=== PATIENT | male | born 1995 | race Two or more races ===

== ENCOUNTER 2018-12-29 03:05 | Emergency (ER) | payer OTHER ==
[~2018-12-29] VITALS: Ht 160 cm; Wt 99.8 kg
[2018-12-29] MEDS ORDERED: HALOPERIDOL LACTATE INJ 5 MG/ML VIAL ONE (03:17)
[2018-12-29] MEDS ORDERED: LORAZEPAM INJ 2 MG/ML VIAL ONE (03:18)
--- NOTE | 2018-12-29 03:20 | NUR ---
[id number] FROM HOME C/O ANXIETY, PANIC ATTACK, SCREAMING, SEEN AND EVAL DONE, PLACED ON ER BED 13, SEEN AND EVAL DR MONCADA, [place] ORDERS ENTERED, WILL CONT' TO MONITOR.
[2018-12-29 03:27] LABS: BASOPHILS # (AUTO) 0.1 /CMM (0.0-0.2); BASOPHILS % (AUTO) 0.8 % (0.0-2.0); EOSINOPHILS % (AUTO) 2.6 % (0.0-6.0); HEMATOCRIT 42 % (39-51); HEMOGLOBIN 14.4 g/dL (13.5-17.5); LYMPHOCYTES % (AUTO) 19.5 % (20.0-44.0); MEAN CORPUSCULAR HGB CONC 34 g/dl (31.0-36.0); MEAN CORPUSCULAR VOLUME 79 fL (80-96); MONOCYTES # (AUTO) 0.9 /CMM (0.1-1.30); MONOCYTES % (AUTO) 5.9 % (2.0-12.0); NEUTROPHILS # (AUTO) 11.1 /CMM (1.8-8.9); NEUTROPHILS % (AUTO) 71.2 % (43.0-81.0); PLATELET COUNT (AUTO) 388 /CMM (150-450); RED BLOOD CELL COUNT(AUTO) 5.28 MIL/uL (4.5-6.0); WHITE BLOOD COUNT (AUTO) 15.6 K/uL (4.3-11.0)
[2018-12-29] MEDS ORDERED: LORAZEPAM INJ 2 MG/ML VIAL IM ONE (03:30)
[2018-12-29] MEDS ORDERED: LIDOCAINE 2% JEL UROJET 10 ML MM ONE (03:30)
[2018-12-29] MEDS ORDERED: HALOPERIDOL LACTATE INJ 5 MG/ML VIAL IM ONE (03:30)
[2018-12-29 03:33] LABS: CALCIUM, SERUM 10.1 mg/dL (8.5-10.1); CARBON DIOXIDE 19 mmol/L (21-32); CHLORIDE 101 mmol/L (98-107); CREATININE 1.2 mg/dL (0.6-1.3); GLUCOSE 138 mg/dL (74-106); POTASSIUM 3.4 mmol/L (3.5-5.1); SODIUM SERUM 140 mmol/L (136-145); UREA NITROGEN, BLOOD 20 mg/dL (7-18)
[2018-12-29 03:38] LABS: ALANINE AMINOTRANSFERASE 76 U/L (12-78); ALBUMIN 4.2 g/dL (3.4-5.0); ALKALINE PHOSPHATASE 85 U/L (46-116); ASPARTATE AMINOTRANSFERASE 26 U/L (15-37); BILIRUBIN,DIRECT 0.1 mg/dL (0.0-0.2); BILIRUBIN,TOTAL 0.3 mg/dL (0.2-1.0); TOTAL PROTEIN, SERUM 9.4 g/dL (6.4-8.2)
[2018-12-29 03:39] LABS: ACETAMINOPHEN 0 ug/ml (10-30); ALCOHOL, BLOOD < 3 mg/dL (0-0); SALICYLATE 1.7 mg/dL (2.8-20.0)
[2018-12-29] MEDS ORDERED: CT SWABBABLE VALVE TRANS SET 1 EA INFUS.SET MC ONE (04:48)
[2018-12-29] MEDS ORDERED: IOHEXOL-350 100 ML VIAL IV ONE (04:48)
[2018-12-29] MEDS ORDERED: IV NS 0.9% 250 ML IV ONE (04:49)
--- NOTE | 2018-12-29 05:09 | NUR ---
PT TAKEN TO CTA CHEST.
[2018-12-29] MEDS ORDERED: IV NS 0.9% 1,000 ML BAG IV ONE (06:30)
--- NOTE | 2018-12-29 08:53 | NUR ---
RECEIVED A CALL FROM MANUEL MARY SALES REPRESENTATIVE [employer] FOR INITIAL VS.
--- NOTE | 2018-12-29 09:04 | NUR ---
DR GONZALEZ ([facility]) TALKING TO DR SULLIVAN ON THE PHONE.
--- NOTE | 2018-12-29 09:20 | NUR ---
PATIENT'S MOM AT .
--- NOTE | 2018-12-29 09:52 | NUR ---
GOT MD TO ACCEPT IN [facility]. MORE TO FOLLOW.
--- NOTE | 2018-12-29 10:18 | NUR ---
[facility]. ROOM 310-B. MELVIN EDWARD [phone] FOR REPORT [facility] TRANSPORT ETA [id number].
--- NOTE | 2018-12-29 11:04 | NUR ---
REPORT GIVEN TO AUSTYN EDWARD, ASSIGNED TO ROOM 310B . S.
--- NOTE | 2018-12-29 12:30 | NUR ---
PATIENT LEFT THE FACILITY AND TRANSFERRED TO [facility]IA [facility]LS AMBULANCE. PATIENT IN STABLE CONDITION. NO DISTRESS NOTED. VSS.
[2018-12-29 12:46] VITALS: BP 102/75
== END 2018-12-29 12:51 | disposition short-term general hospital (02) ==
LOC: ER 03:07
DX: J98.59 Other diseases of mediastinum, not elsewhere classified (principal); F41.9 Anxiety disorder, unspecified; F12.929 Cannabis use, unspecified with intoxication, unspecified
CPT/HCPCS: 36415; 71045; 71275; 80048; 80076; 80305; 80307; 80329; 85025; 87081; 93005; 96372 ×2; 99285; G0480; J1630; J2060; J7030 ×2; J7050; Q9967

== ENCOUNTER 2019-10-20 01:21 | Emergency (ER) | payer OTHER ==
[~2019-10-20] VITALS: Ht 165.1 cm; Wt 99.8 kg
--- NOTE | 2019-10-20 02:21 | NUR ---
PT CAME TO ER BED 2 C/O PAIN WHEN BREATHING. PT RECENTLY HAD CHEMOTHERAPY IN AUGUST. AAOX4. NO SOB. BREATHING EVENLY AND UNLABORED ON ROOM AIR. O2 SAT AT 100%. CONNECTED TO [employer] SALES ADVISOR.
--- NOTE | 2019-10-20 02:28 | NUR ---
BLOOD DRAWN AND SENT TO LAB FOR TESTING
[2019-10-20 02:30] LABS: BASOPHILS # (AUTO) 0.1 /CMM (0.0-0.2); BASOPHILS % (AUTO) 0.7 % (0.0-2.0); EOSINOPHILS % (AUTO) 2.6 % (0.0-6.0); HEMATOCRIT 35 % (39-51); HEMOGLOBIN 11.7 g/dL (13.5-17.5); LYMPHOCYTES # (AUTO) 1.6 /CMM (0.8-4.8); MEAN CORPUSCULAR HGB CONC 33 g/dl (31.0-36.0); MEAN CORPUSCULAR VOLUME 78 fL (80-96); MONOCYTES # (AUTO) 0.7 /CMM (0.1-1.30); MONOCYTES % (AUTO) 6.5 % (2.0-12.0); NEUTROPHILS # (AUTO) 8.7 /CMM (1.8-8.9); NEUTROPHILS % (AUTO) 76.2 % (43.0-81.0); PLATELET COUNT (AUTO) 331 /CMM (150-450); RED BLOOD CELL COUNT(AUTO) 4.54 MIL/uL (4.5-6.0); WHITE BLOOD COUNT (AUTO) 11.4 K/uL (4.3-11.0)
[2019-10-20] MEDS ORDERED: IOHEXOL-350 100 ML VIAL IV ONE (02:38)
[2019-10-20] MEDS ORDERED: IV NS 0.9% 250 ML IV ONE (02:38)
[2019-10-20] MEDS ORDERED: CT SWABBABLE VALVE TRANS SET 1 EA INFUS.SET MC ONE (02:38)
[2019-10-20 02:46] LABS: CREATININE 0.9 mg/dL (0.6-1.3); POTASSIUM 3.4 mmol/L (3.5-5.1)
--- NOTE | 2019-10-20 02:58 | NUR ---
PT BROUGHT BY RADIOLOGY TO CT
--- NOTE | 2019-10-20 06:22 | NUR ---
Patient discharged to home in stable condition. Written and verbal after care instructions given. Patient verbalizes understanding of instruction.
[2019-10-20 06:23] VITALS: BP 116/76
== END 2019-10-20 06:24 | disposition home or self-care (01) ==
LOC: ER 01:24
DX: R06.02 Shortness of breath (principal); Z85.79 Personal history of other malignant neoplasms of lymphoid, hematopoietic and related tissues
CPT/HCPCS: 36415; 71275; 80048; 84484 ×2; 85025; 93005 ×2; 99284; J7050; Q9967

== ENCOUNTER 2019-10-31 20:02 | Emergency (ER) | payer OTHER ==
[~2019-10-31] VITALS: Ht 162.6 cm; Wt 102.1 kg
[2019-10-31 20:15] VITALS: BP 112/64
--- NOTE | 2019-10-31 20:18 | NUR ---
PT AAOX4. AMBULAORY WITH STEADY GAIT. BIBS. C/O DROWSY X 2 DAYS ON XANAX FOR ANXIETY LAST TAKEN TODAY AM. PT STATES HE FELT DIZZY TODAY. NO NEURO DEFICIT, PERRLA. VSS. AWAITING MD FOR EVAL.
== END 2019-10-31 21:16 | disposition home or self-care (01) ==
LOC: ER 20:02
DX: F41.9 Anxiety disorder, unspecified (principal); G47.00 Insomnia, unspecified; Z85.79 Personal history of other malignant neoplasms of lymphoid, hematopoietic and related tissues

== ENCOUNTER 2022-04-28 02:09 | Emergency (ER) | payer MEDICAID, OTHER ==
[~2022-04-28] VITALS: Ht 162.6 cm; Wt 77.1 kg
[2022-04-28 02:25] VITALS: BP 140/87
--- NOTE | 2022-04-28 02:25 | NUR ---
BIBS C/O FLU LIKE SYMPTOMS COUGH, SORETHROAT , AND NAUSEA X FEW DAYS EXPOSED TO COVID 19. TOLERATING R/A AT 98%, A/OX4. PT AMBULATORY WITH STEADY GAIT. SAFETY MEASURES IN PLACE
--- NOTE | 2022-04-28 02:31 | NUR ---
COVID SWAB COLLECTED AND SENT TO LAB
--- NOTE | 2022-04-28 03:16 | NUR ---
CRITICAL: COVID POSITIVE
[2022-04-28] MEDS ORDERED: GUAIFENESIN 300 MG/15 ML UDC ONE (03:23)
--- NOTE | 2022-04-28 03:25 | NUR ---
Patient discharged to home in stable condition. Written and verbal after care instructions given. Patient verbalizes understanding of instruction. PT ambulatory with a steady gait
[2022-04-28] MEDS ORDERED: GUAIFENESIN 300 MG/15 ML UDC PO ONE (03:30)
== END 2022-04-28 03:26 | disposition home or self-care (01) ==
LOC: ER 02:13
DX: U07.1 COVID-19 (principal); R11.0 Nausea; C85.90 Non-Hodgkin lymphoma, unspecified, unspecified site; Z28.310 Unvaccinated for COVID-19; R03.0 Elevated blood-pressure reading, without diagnosis of hypertension
CPT/HCPCS: 99283; 87426; C9803

== ENCOUNTER 2024-09-27 18:42 | Emergency (ER) | payer MEDICAID, OTHER ==
[~2024-09-27] VITALS: Ht 152.4 cm; Wt 124.7 kg
[2024-09-27 19:47] LABS: BASOPHILS # (AUTO) 0.1 K/uL (0.0-0.2); BASOPHILS % (AUTO) 0.6 % (0.0-2.0); EOSINOPHILS % (AUTO) 0.3 % (0.0-6.0); HEMATOCRIT 43 % (39-51); HEMOGLOBIN 14.6 g/dL (13.5-17.5); LYMPHOCYTES # (AUTO) 1.3 K/uL (0.8-4.8); MEAN CORPUSCULAR HEMOGLOBIN 29 PG (26.0-33.0); MEAN CORPUSCULAR HGB CONC 34 g/dl (31.0-36.0); MEAN CORPUSCULAR VOLUME 84 fL (80-96); MONOCYTES # (AUTO) 0.5 K/uL (0.1-1.30); MONOCYTES % (AUTO) 4.5 % (2.0-12.0); NEUTROPHILS # (AUTO) 8.1 K/uL (1.8-8.9); NEUTROPHILS % (AUTO) 81.6 % (43.0-81.0); PLATELET COUNT (AUTO) 224 K/uL (150-450); RED BLOOD CELL COUNT(AUTO) 5.12 MIL/uL (4.5-6.0)
[2024-09-27 19:56] LABS: CALCIUM, SERUM 9.6 mg/dL (8.5-10.1); CARBON DIOXIDE 20 mmol/L (21-32); CHLORIDE 101 mmol/L (98-107); GLUCOSE 105 mg/dL (74-106); SODIUM SERUM 136 mmol/L (136-145); UREA NITROGEN, BLOOD 15 mg/dL (7-18)
[2024-09-27 20:07] LABS: NT-PRO BNP 27 pg/mL (0-125)
[2024-09-27 21:45] VITALS: BP 117/70; TEMP 98; O2SAT 100
== END 2024-09-27 21:46 | disposition home or self-care (01) ==
LOC: ER 18:48
DX: R06.02 Shortness of breath (principal); R07.89 Other chest pain; R00.2 Palpitations; R05.9 Cough, unspecified; Z85.71 Personal history of Hodgkin lymphoma; Z88.8 Allergy status to other drugs, medicaments and biological substances; Z59.00 Homelessness unspecified
CPT/HCPCS: 36415; 71045-TC; 80048-TC; 83880; 84484-TC; 85025-TC; 85378-TC